=== PATIENT | male | born 1955 | race Two or more races ===

== ENCOUNTER 2023-05-20 14:34 | Emergency (ER) | payer OTHER ==
[~2023-05-20] VITALS: Ht 165.1 cm; Wt 78.1 kg
[2023-05-20] MEDS ORDERED: CEPH250C PO (15:38)
[2023-05-20] MEDS ORDERED: CEPHALEXIN 250 MG CAP PO ONE (15:45)
[2023-05-20] MEDS ORDERED: HYDROcodone-ACET 5/325MG TAB PO ONE (15:45)
[2023-05-20] MEDS ORDERED: TETANUS-DIPTH-ACEL PERTUSSIS 0.5ML SYR Tdap IM ONE (15:45)
[2023-05-20 16:26] VITALS: BP 188/90; PULSE 92; RESP 18; TEMP 97.5; O2SAT 95
[2023-05-21] MEDS ORDERED: BACL10TA PO (12:11)
[2023-05-21] MEDS ORDERED: TRAM50TA2 PO (12:11)
== END 2023-05-20 16:46 | disposition home or self-care (01) ==
LOC: ER 14:34
DX: T63.301A Toxic effect of unspecified spider venom, accidental (unintentional), initial encounter (principal); S90.462A Insect bite (nonvenomous), left great toe, initial encounter; E11.9 Type 2 diabetes mellitus without complications; I10 Essential (primary) hypertension; Y92.89 Other specified places as the place of occurrence of the external cause
CPT/HCPCS: 90471; 90715

== ENCOUNTER 2023-05-21 11:06 | Emergency (ER) | payer OTHER ==
[~2023-05-21] VITALS: Ht 165.1 cm; Wt 76.5 kg
[~2023-05-21 11:06] MED LIST: CEPH250C PO
[2023-05-21 11:39] VITALS: BP 164/99; PULSE 98; RESP 18; TEMP 98.7; O2SAT 95
[2023-05-21] MEDS ORDERED: TRAM50TA2 PO (12:11)
[2023-05-21] MEDS ORDERED: BACL10TA PO (12:11)
[2023-05-21] MEDS ORDERED: HYDROcodone-ACET 5/325MG TAB PO ONE (12:15)
== END 2023-05-21 12:25 | disposition home or self-care (01) ==
LOC: ER 11:06
DX: T63.481A Toxic effect of venom of other arthropod, accidental (unintentional), initial encounter (principal); M62.838 Other muscle spasm; I10 Essential (primary) hypertension; E11.9 Type 2 diabetes mellitus without complications; Z79.899 Other long term (current) drug therapy; Y92.89 Other specified places as the place of occurrence of the external cause